=== PATIENT | male | born 1995 | race Caucasian/White ===

== ENCOUNTER 2021-11-25 01:42 | Emergency (ER) | payer SELFPAY ==
--- OUTSIDE RECORDS SUMMARY | 2021-11-25 01:46 | XMS REPORT | Continuity of Care Document ---
:1995 Author Organization [facility] t Address [address] [place] [address] Care Team Providers Name Role Phone PCP, PATIENT DOES NOT HAVE A Primary Care Physician Unavaila ble KAR STEELE Attending Clinician Unavailable Kar Steele DO Attending Clinician KAR STEELE Admitting Clinician Unavailable Problems This patient has no known problems. Allergies, Adverse Reactions, Alerts Allergy Allergy Status Severity Reaction(s) Onset Inactive Treating Comm ents Source Name Type Date Date Clinician NO KNOWN Drug Active Univers ALLERGIE Class ity of S [facility] Social History Social Habit Start Date Stop Date Quantity Comments Source Exposure to Unable to assess Univers ity of SARS-CoV-2 [facility] (event) [place] Sex Assigned At [birth year] Universit y of 00:00:00 00:00:00 [facility] Smoking Status Start Date Stop Date Source Unknown if ever smoked [facility] Medications This patient has no known medications. Vital Signs Vital Name Observation Time Observation Value Comments Source Systolic blood 2021-05-03 18:15:00 151 mm[Hg] Univer sity of pressure [facility] Diastolic blood 2021-05-03 18:15:00 79 mm[Hg] Unive rsity [facility] Heart rate 2021-05-03 18:15:00 82 /min [facility] Body temperature 2021-05-03 18:15:00 36.94 [facility] Respiratory rate 2021-05-03 18:15:00 18 /min [facility] Body weight 2021-05-03 18:15:00 63.504 kg Universi ty of [facility] Oxygen saturation in 2021-05-03 18:15:00 99 /min University of Arterial blood by [facility] Pulse oximetry Branch Procedures Procedure Date / Time Performed Performing Clinician Dajuan JOSE WND BODY 2021-05-03 20:49:36 Kar Steele [facility] 2.5CM OR LESS Medical Branch XR HAND 3+ VW LEFT 2021-05-03 18:55:02 Kar Steele y of [facility] Branch NOTICE OF PRIVACY 2021-05-03 18:13:18 Doctor Unassigned, No Univ [facility] PRACTICES Name Medical Branch CONSENT/REFUSAL FOR 2021-05-03 18:12:05 Doctor Unassigned, No [facility] AND Name Medical Branch TREATMENT Encounters Start End Encounter Admission Attending Care Care Encounter Source Date/Time Date/Time Type Type Clinicians Facility Department ID 2021-05-03 2021-05-03 Emergency X KRISHNA STEELE ERT [id number] Univers 12:18:00 14:53:00 KAR miller [facility] 2021-05-03 2021-05-03 Emergency Singer [facility] [id number] Univers 12:18:00 14:53:00 Kar HARKINS [id number] i ty [facility] [id number] [facility] [id number] [facility] 084 Branch Results This patient has no known results.
--- NOTE | 2021-11-25 02:56 | EDPHYS ---
Physician Documentation [facility] Name: Giuseppe Ascencio Age: 26 yrs Sex: Male : 1995 Arrival Date: 11/25/2021 Time: 01:49 Bed 6 Private MD: ED Physician Jay hSeridan HPI: 11/25 02:50 This 26 yrs old Male presents to ER via Ambulatory with complaints of NEEDS brandon MEDS, LOST ORIGINAL MEDS. 02:50 . Onset: The symptoms/episode began/occurred yesterday. Severity of symptoms: At their brandon worst the symptoms were very mild in the emergency department the symptoms are unchanged. The patient has not experienced similar symptoms in the past. Historical: - Allergies: 02:10 No Known Allergies; kl - PMHx: 02:10 Anxiety; depression; kl - Immunization history:: Adult Immunizations not up to date. - Social history:: Smoking status: Patient denies any tobacco usage or history of. ROS: 02:52 Constitutional: Negative for fever, chills, and weight loss, Eyes: Negative for injury, brandon pain, redness, and discharge, ENT: Negative for injury, pain, and discharge, Neck: Negative for injury, pain, and swelling, Cardiovascular: Negative for chest pain, palpitations, and edema, Respiratory: Negative for shortness of breath, cough, wheezing, and pleuritic chest pain, Abdomen/GI: Negative for abdominal pain, nausea, vomiting, diarrhea, and constipation, Back: Negative for injury and pain, : Negative for injury, bleeding, discharge, and swelling, MS/Extremity: Negative for injury and deformity, Skin: Negative for injury, rash, and discoloration, Neuro: Negative for headache, weakness, numbness, tingling, and seizure, Psych: Negative for depression, anxiety, suicide ideation, homicidal ideation, and hallucinations, Allergy/Immunology: Negative for hives, rash, and allergies, Endocrine: Negative for neck swelling, polydipsia, polyuria, polyphagia, and marked weight changes, Hematologic/Lymphatic: Negative for swollen nodes, abnormal bleeding, and unusual bruising. Exam: 02:52 Constitutional: This is a well developed, well nourished patient who is awake, alert, brandon and in no acute distress. Head/Face: Normocephalic, atraumatic. Eyes: Pupils equal round and reactive to light, extra-ocular motions intact. Lids and lashes normal. Conjunctiva and sclera are non-icteric and not injected. Cornea within normal limits. Periorbital areas with no swelling, redness, or edema. ENT: Nares patent. No nasal discharge, no septal abnormalities noted. Tympanic membranes are normal and external auditory canals are clear. Oropharynx with no redness, swelling, or masses, exudates, or evidence of obstruction, uvula midline. Mucous membranes moist. Neck: Trachea midline, no thyromegaly or masses palpated, and no cervical lymphadenopathy. Supple, full range of motion without nuchal rigidity, or vertebral point tenderness. No Meningismus. Chest/axilla: Normal chest wall appearance and motion. Nontender with no deformity. No lesions are appreciated. Cardiovascular: Regular rate and rhythm with a normal S1 and S2. No gallops, murmurs, or rubs. Normal PMI, no JVD. No pulse deficits. Respiratory: Lungs have equal breath sounds bilaterally, clear to auscultation and percussion. No rales, rhonchi or wheezes noted. No increased work of breathing, no retractions or nasal flaring. Abdomen/GI: Soft, non-tender, with normal bowel sounds. No distension or tympany. No guarding or rebound. No evidence of tenderness throughout. Back: No spinal tenderness. No costovertebral tenderness. Full range of motion. Skin: Warm, dry with normal turgor. Normal color with no rashes, no lesions, and no evidence of cellulitis. MS/ Extremity: Pulses equal, no cyanosis. Neurovascular intact. Full, normal range of motion. Neuro: Awake and alert, GCS 15, oriented to person, place, time, and situation. Cranial nerves II-XII grossly intact. Motor strength 5/5 in all extremities. Sensory grossly intact. Cerebellar exam normal. Normal gait. Psych: Awake, alert, with orientation to person, place and time. Behavior, mood, and affect are within normal limits. Vital Signs: 02:05 BP 117 / 78; Pulse 72; Resp 18; Pulse Ox 100% on R/A; kl MDM: 02:07 Patient medically screened. [facility] 11/25 02:08 Order name: EKG; Complete Time: 02:08 [facility] 11/25 02:08 Order name: Suicide Precautions [facility] 11/25 02:08 Order name: Suicide Screening ([place]) [facility] 11/25 02:08 Order name: Urine Dipstick-Ancillary (obtain specimen) [facility] Administered Medications: 02:54 Not Given (Patient Refused): NS 0.9% 500 ml IV at bolus once tw5 Disposition Summary: 11/25/21 02:55 Discharge Ordered Problem: new brandon Symptoms: have improved brandon Location: Home(11/25/21 02:55) tw5 Condition: Stable(11/25/21 02:55) tw5 Diagnosis - Anxiety disorder, unspecified brandon Followup: brandon - With: Private Physician - When: 2 - 3 days - Reason: Recheck today's complaints, Continuance of care, Re-evaluation by your physician Followup: brandon - With: Andrews Toledo MD - When: 2 - 3 days - Reason: Recheck today's complaints, Continuance of care, Re-evaluation by your physician Discharge Instructions: - Discharge Summary Sheet brandon - Panic Attack brandon - Panic Attack, [id number] brandon - Supporting Someone With Anxiety brandon - Managing Anxiety, Adult [facility] Forms: - Medication Reconciliation Form [facility] - Thank You Letter brandon - Antibiotic Education brandon - Prescription Opioid Use [facility] Prescriptions: - Hydroxyzine HCl 25 mg Oral Tablet - take 1 tablet by ORAL route every 6 hours As needed; 30 tablet; Refills: 0, brandon Product Selection Permitted Signatures: Dispatcher [employer] Genevieve Wills, FAMILIA RN Jay Worthington MD MD cha Wood, Tiffany tw5 Corrections: (The following items were deleted from the chart) 02:55 02:55 Home [facility] tw5 02:55 02:55 Stable [facility] tw5 03:41 02:08 EKG - Nurse/Tech ordered. brandon ke1 03:41 02:08 IV Saline Lock ordered. [facility] ke1 03:41 02:08 Labs collected and sent ordered. brandon ke1
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
[2021-11-25 03:00] VITALS: BP 117/78; O2SAT 100
== END 2021-11-25 03:43 | disposition left against medical advice (07) ==
LOC: ER 01:42
DX: F41.9 Anxiety disorder, unspecified (principal)
CPT/HCPCS: 99281